=== PATIENT | female | born 1955 | race African-American/Black ===

== ENCOUNTER 2017-08-25 06:58 | Day surgery (SDC) | payer OTHER ==
[~2017-08-25 06:58] MED LIST: ACETAMINOPHEN 1,000 MG/100 ML BTL IV ONE; CEFAZOLIN 2 Gram 2 GM/50 ML BAG IVPB ONE
[2017-08-25] MEDS ORDERED: ONDANSETRON HCL IV 4 MG/2 ML VIAL IVP ONE (06:59)
[2017-08-25] MEDS ORDERED: PROPOFOL 10 MG/ML VIAL IV ONE (06:59)
[2017-08-25] MEDS ORDERED: KETOROLAC 30 MG/ML VIAL IVP ONE (06:59)
[2017-08-25] MEDS ORDERED: SEVOFLURANE 250 ML INH ONE (06:59)
[2017-08-25] MEDS ORDERED: BUPIVACAINE 0.5% W/EPI MPF 30 ML VIAL IVP ONE (06:59)
[2017-08-25] MEDS ORDERED: MORPHINE SULFATE PF 10MG/10ML VIAL IV ONE (06:59)
[2017-08-25] MEDS ORDERED: BUPIVACAINE LIPOSOME/PF 133MG/10ML VIAL IV ONE (06:59)
[2017-08-25] MEDS ORDERED: DEXAMETHASONE 4 MG/ML 1ML VIAL IVP ONE ×2 (06:59)
[2017-08-25] MEDS ORDERED: ROPIVACAINE HCL (NAROPIN) /PF 5MG/ML 20ML VIAL IV ONE (06:59)
[2017-08-25] MEDS ORDERED: *PACU ONLY* KETAMINE HCL 10 MG/ML (20ML) VIAL IV ONE (06:59)
[2017-08-25] MEDS ORDERED: MIDAZOLAM HCL 2MG/2ML VIAL IV ONE (06:59)
[2017-08-25] MEDS ORDERED: BUPIVACAINE 0.5% (5MG/ML) PF 30ML VIAL IVP ONE (06:59)
[2017-08-25 07:12] LABS: BASO % 0.1 % (0-6); EOS % 1.5 % (0-6); GRAN % 63.7 % (47-80); HEMATOCRIT 38.5 % (35.0-47.0); LYMPH % 26.1 % (16-45); MEAN CELL VOLUME 85.4 fl (81-97); MEAN CORPUSCULAR HEMOGLOBIN 26.6 pg (27-33); MEAN CORPUSCULAR HGB CONC 31.2 g/dl (32-36); MEAN PLATELET VOLUME 9.3 fl (7.4-10.4); MONO % 8.6 % (0-9); PLATELET COUNT 371 K/uL (130-400); RED BLOOD COUNT 4.51 M/uL (3.80-5.40); RED CELL DISTRIBUTION WIDTH 14.6 % (11.5-14.5); WHITE BLOOD COUNT W/O DIFF 7.9 K/uL (4.2-12.2)
[2017-08-25 07:41] LABS: BLOOD UREA NITROGEN 21 mg/dL (8-23); CREATININE 0.8 mg/dL (0.5-0.9); EST GLOMERULAR FILTRATION RATE > 60 mL/min; GLUCOSE,RANDOM 106 mg/dL (74-109)
--- NOTE | 2017-08-26 21:23 | Operative Note ---
DATE: 08/25/2017 PREOPERATIVE DIAGNOSIS: TEAR OF THE ROTATOR CUFF ON THE RIGHT WITH IMPINGEMENT AND OS ACROMIALE. POSTOPERATIVE DIAGNOSES: 1. CHRONICALLY TORN RIGHT ROTATOR CUFF. 2. LARGE UNSTABLE OS ACROMIALE. 3. FRINGE TEAR OF THE SUPERIOR AND ANTERIOR LABRUM. 4. PROFOUND EXTERNAL IMPINGEMENT RIGHT SHOULDER. 5. END-STAGE ARTHROSIS RIGHT DISTAL CLAVICLE. PROCEDURE: 1. REPAIR OF A CHRONICALLY TORN ROTATOR CUFF TENDON ON THE RIGHT. 2. RIGHT SHOULDER ARTHROSCOPY WITH INTERARTICULAR DEBRIDEMENT. 3. OPEN REDUCTION AND INTERNAL FIXATION OF THE ACROMION. 4. RIGHT SHOULDER OPEN ACROMIOPLASTY, CA LIGAMENT RESECTION, AND SUBACROMIAL BURSECTOMY. 5. RIGHT SHOULDER DISTAL CLAVICLE RESECTION. STAFF SURGEON: TUNDE WOODS M.D. ANESTHESIA: GENERAL. PREPARATION: CHLORAPREP. INDIVIDUAL CONSIDERATIONS: NONE. PROCEDURE: The patient was taken to the Operating Room and placed supine on the operating table. She had a successful induction with general anesthetic. She was then placed in a semi-seated beach chair position and her right arm and shoulder were prepped and draped in the usual fashion. The patient had a posterior portal identified for arthroscopy. Examination under anesthesia showed a palpable os acromiale. The skin was infiltrated with 0.5% Marcaine with Epinephrine prior. An #18 gauge spinal needle was easily placed in the joint and the joint was inflated with normal saline with a 60 cc syringe. A stab wound was made and a blunt tip trocar for the scope was placed in the joint and the joint was inflated with normal saline. An anterior accessory portal was then made just inferior to the intact long head of the biceps tendon in a retrograde fashion with a Wissinger paco and the joint was irrigated out. The patient had an obvious tear of the rotator cuff superiorly at the supraspinatus. The subscapularis looked normal. The glenohumeral joint was normal. The long head was normal. There was fraying of the labrum superiorly and anteriorly and this was debrided out with a shaver. No loose bodies were seen in the inferior pouch. The remainder of the cuff looked good. After irrigation, the portals were closed with judith. The patient had an anterior approach to the subacromial space and distal clavicle. The skin was infiltrated with 0.5% Marcaine with Epinephrine prior. Sharp dissection carried down through the skin and subcutaneous tissues. Small veins were coagulated with a Bovie. An anterior deltoid interval was developed. Care was taken not to split the deltoid more than about 4 cm distal to the anterior tip of the acromion to prevent injury to the axillary nerve. Once in the subacromial space, there was a angulo of fluid consistent with a tear. The deltoid was then taken anteriorly off the anterior portion f the acromion, over the top of the CA ligament, and off the anterior aspect of the highly degenerated distal clavicle. The CA ligament was resected with a Bovie. The distal clavicle was resected with an oscillating saw taking about 1 cm. The patient had downsloping acromion and an obvious unstable os acromiale, which was large. An anterior acromioplasty was performed taking about 4 or 5 mm tapering to wedge posteromedially to include the spurs at the AC joint. I then went ahead and debrided out a very thickened bursa. I then mobilized the os acromiale going laterally to medially. There was a large piece, about 2 x 3 cm. Certainly too large to excise. I went ahead and exposed the nonunion site, debrided it to good bleeding bone, and held it anatomically reduced. I then drove two small guidepins with 3.0 cannulated screws and then secured it by placing the cannulated screws into the remaining acromion in a lag fashion. This gave excellent stable osseous synthesis. I then smoothed the undersurface of the acromion with a rasp. I now had a good look at the rotator cuff. The supraspinatus was torn about 1 cm. This was debrided back to good bleeding tendon creating about a 1.5 cm tear. I roughened up the tuberosity with a bur, creating a small trough. I placed retention sutures and then sutured the end of the tendon into the roughed trough through bone, tying down distally affecting an anatomic repair. Now when I moved the shoulder, it would no longer impinge. Essentially, the os acromiale was no longer unstable. After irrigation, the deltoid was reattached to the remaining acromion with multiple interrupted #2 Vicryl going directly through the bony acromion. The periosteal cuff and distal clavicle was closed with a running #1 Vicryl. The anterior deltoid interval was closed with a running #1 Vicryl. The subcu was closed with 2-0 Plus Vicryl and the skin was closed with a running 3-0 Stratafix and reinforced with Steri-Strips. 15 mL of 0.5% Marcaine with Epinephrine along with 10 mg of Morphine were injected into the subacromial space and a sterile Bulkee compressive dressing and sling were applied. The patient tolerated the procedures well. Needle and sponge counts were correct, estimated blood loss was minimal, and she was taken back to Recovery in good condition. There were no complications. JOB NUMBER: [id number] MTDD
== END 2017-08-25 11:55 | disposition home or self-care (01) ==
LOC: SUR 06:58
PROVIDERS: ATTEND Orthopaedic Surgery
DX: S46.011A Strain of muscle(s) and tendon(s) of the rotator cuff of right shoulder, initial encounter (principal); M75.41 Impingement syndrome of right shoulder; M94.8X1 Other specified disorders of cartilage, shoulder; M19.011 Primary osteoarthritis, right shoulder
CPT/HCPCS: 23412; 29822; 23125; 23585; 23130; 01610; 85025; 80048; J1885; J2405; J0690; J2795; C9290